=== PATIENT | male | born 1975 | race African-American/Black ===

== ENCOUNTER 2017-05-08 20:43 | Emergency (ER) | payer BC ==
[~2017-05-08] VITALS: Ht 175.3 cm; Wt 98.9 kg
[2017-05-08] MEDS ORDERED: NKM (20:53)
[2017-05-08 21:00] VITALS: BP 151/98
[2017-05-08] MEDS ORDERED: ROBAXIN-750750 MG PO (21:09)
[2017-05-08] MEDS ORDERED: IBUPROFEN800 MG ORAL (21:09)
[2017-05-08] MEDS ORDERED: Methocarbamol 750mg tab ORAL ONE (21:15)
[2017-05-08 21:25] VITALS: BP 151/98
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
== END 2017-05-08 21:25 | disposition home or self-care (01) ==
LOC: EMR 21:05
DX: S13.4XXA Sprain of ligaments of cervical spine, initial encounter (principal); V43.62XA Car passenger injured in collision with other type car in traffic accident, initial encounter; Y92.410 Unspecified street and highway as the place of occurrence of the external cause
CPT/HCPCS: 99283

== ENCOUNTER 2017-05-21 18:14 | Emergency (ER) | payer BC ==
[~2017-05-21] VITALS: Ht 180.3 cm; Wt 95.3 kg
[~2017-05-21 18:14] MED LIST: IBUPROFEN800 MG ORAL; NKM; ROBAXIN-750750 MG PO
[2017-05-21 18:18] VITALS: BP 160/95
[2017-05-21] MEDS ORDERED: CYCLOBENZAPRINE10 MG ORAL (19:18)
[2017-05-21] MEDS ORDERED: IBUPROFEN600 MG ORAL (19:18)
[2017-05-21 19:25] VITALS: BP 160/95
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
--- NOTE | 2017-05-22 09:13 | Diagnostic Imaging Report ---
Clinical Indication:Pain Technique: 3 views of the left wrist Comparison: None Findings: No acute fractures. No dislocations. The joint spaces are preserved. Impression: Negative
== END 2017-05-21 19:25 | disposition home or self-care (01) ==
LOC: EMR 19:00
DX: S63.502A Unspecified sprain of left wrist, initial encounter (principal); Z88.8 Allergy status to other drugs, medicaments and biological substances; V43.52XA Car driver injured in collision with other type car in traffic accident, initial encounter; Y92.410 Unspecified street and highway as the place of occurrence of the external cause
CPT/HCPCS: 99283